=== PATIENT | female | born 1950 | race Caucasian/White ===

== ENCOUNTER 2017-09-07 09:12 | Day surgery (SDC) | payer MEDICARE, OTHER ==
[~2017-09-07] VITALS: Ht 160 cm; Wt 81.9 kg
[2017-09-07 09:35] VITALS: Ht 160 cm; Wt 81.9 kg
[2017-09-07] MEDS ORDERED: GABAPENTIN PO (09:59)
[2017-09-07] MEDS ORDERED: SENNA PO (09:59)
[2017-09-07] MEDS ORDERED: ELIQUIS PO (09:59)
[2017-09-07] MEDS ORDERED: SIMVASTATIN PO (09:59)
[2017-09-07 10:11] VITALS: BP 141/70; PULSE 101; RESP 18
[2017-09-07] MEDS ORDERED: LIDOCAINE 2% (SDV) 5 ML INJ ONE (10:13)
[2017-09-07] MEDS ORDERED: PROPOFOL 60 ML ONE (10:13)
--- NOTE | 2017-09-07 10:57 | OPPN ---
Date/Time of Note Date/Time of Note DATE: 09/07/17 TIME: 10:55 Operative Report Preoperative Diagnosis Abdominal pain Change in bowel habits Postoperative Diagnosis Gastritis Gastric nodule and biopsies were taken 2 small colon polyps from the rectum and sigmoid were removed using biopsy forceps Internal hemorrhoids Operation/Procedure Performed Esophagogastroduodenoscopy and biopsy Colonoscopy and biopsy Surgeon see signature line access services assistant None Anesthesia: MAC Estimated blood loss: none Transfusion Required none Specimen Biopsy of the gastric nodule Colon polyps Grafts/Implants none Complications none TOMMY BOURGEOIS MD Sep 07, 2017 10:57
[2017-09-07 11:17] VITALS: BP 119/65; PULSE 87; RESP 12
--- NOTE | 2017-09-07 13:41 | GILP ---
DATE OF PROCEDURE: NAME OF PROCEDURES: 1. Esophagogastroduodenoscopy and biopsy. 2. Colonoscopy and biopsy. SURGEON: Tommy Easley MD PREOPERATIVE DIAGNOSES: 1. Abdominal pain. 2. Change in the bowel habit. 3. Screening colonoscopy. POSTOPERATIVE DIAGNOSES 1. Gastritis with erosions. The patient had gastric nodules and biopsies were taken for histopatho logy. 2. Colonoscopy all the way to the cecum. 3. Two small polyps, one from the rectum and another one from the sigmoid colon were removed using biopsy forceps. 4. Internal hemorrhoids. INDICATION FOR THE PROCEDURE: Ms. Rose Marie Laguna is a 67-year-old female patient who had upper abdomin al pain, not responding to therapy. She also noticed a change in the bowel habit. She never had sc reening colonoscopy. The procedures and possible complications were well explained to the patient, she understood and con sented to the procedure. DESCRIPTION OF PROCEDURE: Under the influence of anesthesia, the gastroscope was carefully introduc ed into the esophagus and under direct vision it was advanced to the stomach and through the pylorus into the duodenal bulb and descending duodenum. FINDINGS: ESOPHAGUS: Mucosa was normal. STOMACH: The patient had gastritis with erosions. The patient also had a gastric nodule and biopsi es were taken for histopathology. DUODENUM: Normal. The colonoscope was carefully introduced in the rectum and under direct vision it was advanced all t he way to the cecum. FINDINGS: The patient had 2 small colon polyps, one in the rectum and another one in the sigmoid, a nd they were removed using the biopsy forceps. She had internal hemorrhoids. She tolerated the procedures very well and there was no complication from the procedures. At the en d of the procedures, she was awake with stable vital signs and she was discharged home to the care o f her family. IMPRESSION: Please see postoperative diagnosis. PLAN: 1. Omeprazole 40 mg p.o. q.a.m. 2. Await histopathology reports. 3. Next screening colonoscopy in 10 years. Dictated By: TOMMY SANON/SNEHA Conf#: [id number] DID#: [id number]
== END 2017-09-07 19:44 | disposition home or self-care (01) ==
LOC: GIL 09:12
PROVIDERS: ATTEND Internal Medicine Gastroenterology
DX: R19.4 Change in bowel habit (principal); K29.50 Unspecified chronic gastritis without bleeding; K63.5 Polyp of colon; K64.8 Other hemorrhoids; E78.5 Hyperlipidemia, unspecified; E66.9 Obesity, unspecified; Z68.32 Body mass index [BMI] 32.0-32.9, adult
CPT/HCPCS: 88305; 88312

== ENCOUNTER 2018-10-09 15:40 | Inpatient (IN) | payer MEDICARE, OTHER ==
[~2018-10-09] VITALS: Ht 167.6 cm; Wt 76.0 kg
[~2018-10-09 15:40] MED LIST: ELIQUIS PO; GABAPENTIN PO; SENNA PO; SIMVASTATIN PO
[2018-10-09] MEDS ORDERED: SOD CHLORIDE 0.9% 500 ML IV STA (19:37)
[2018-10-09] MEDS ORDERED: HYDROmorphONE 1 MG/ML SYG IV STA (19:37)
[2018-10-09] MEDS ORDERED: ONDANSETRON 4 MG INJ IV STA (19:37)
[2018-10-09] MEDS ORDERED: APIX5TAB PO (19:38)
[2018-10-09] MEDS ORDERED: SIMV20TA PO (19:38)
[2018-10-09] MEDS ORDERED: OMEP20CA16 PO (19:38)
--- NOTE | 2018-10-09 20:00 | ERD ---
ER Documentation Chief Complaint Chief Complaint Syncope HPI This is a 68-year-old female who is here for syncope. The patient says that she had syncope last night with preceding symptoms of chest pain and shortness of breath. She fell to her right side and today is complaining of pain to her right face right chest wall and right posterior ribs. She went to her primary care physician today and he sent her here for evaluation/admission. Patient is taking Eliquis because she has varicose veins given to her by her primary care physician. Denying any focal neurological complaints no GI symptoms. The pain in her right anterior and posterior chest is tender with palpation and movement ROS All systems reviewed and are negative except as per history of present illness. Medications Home Meds Reported Medications Omeprazole* (Omeprazole*) 20 Mg Capsule.dr, 20 MG PO DAILY, #30 CAP 10/09/18 Simvastatin* (Zocor*) 20 Mg Tablet, 20 MG PO QHS, #30 TAB 10/09/18 Apixaban* (Eliquis*) 5 Mg Tablet, 5 MG PO BID, TAB 10/09/18 Discontinued Reported Medications [Gabapentin] No Conflict Check, PO 09/07/17 [Simvastatin] No Conflict Check, PO 09/07/17 [Senna] No Conflict Check, PO 09/07/17 [Eliquis] No Conflict Check, PO 09/07/17 Allergies Allergies: Coded Allergies: No Known Allergy (Unverified , 10/09/18) PMhx/Soc History of Surgery: Yes (HYSTERECTOMY) Anesthesia Reaction: No Hx Neurological Disorder: No Hx Respiratory Disorders: No Hx Cardiac Disorders: No Hx Psychiatric Problems: No Hx Miscellaneous Medical Probl: Yes (HX PULMONARY EMBOLISM, DVT RIGHT LOWER EXTREMITY) Hx Alcohol Use: No Hx Substance Use: No Hx Tobacco Use: No FmHx Family History: No coronary disease Physical Exam Vitals Vital Signs Date Temp Pulse Resp B/P (MAP) Pulse Ox O2 O2 Flow FiO2 Time Delivery Rate 10/09/18 74 20 126/64 99 Room Air 20:22 (84) 10/09/18 97.6 90 20 152/68 97 15:46 (96) Physical Exam Const: Well-developed, well-nourished Head: Atraumatic, normocephalic Eyes: Normal Conjunctiva, PERRLA, EOMI, normal sclera, no nystagmus ENT: Normal External Ears, Nose and Mouth, moist mucus membranes. Neck: Full range of motion. No meningismus, no lymphadenopathy. Resp: Clear to auscultation bilaterally, no wheezing, rhonchi, rales, the right anterior and posterior rib cage is tender to palpation is 100% reproducible is also reproducible with movement Cardio: Regular rate and rhythm, no murmurs, S1 S2 present Abd: Soft, non tender x 4, non distended. Normal bowel sounds, no guarding or rebound, no pulsitile abdominal masses or bruits Skin: No petechiae or rashes, no ecchymosis , no maculopapular rash Back: No midline or flank tenderness Ext: No cyanosis, or edema, FROM x 4, normal inspection, neurovascula rly intact x 4 Neur: Awake and alert, STR 5/5 x 4, sensation intact x 4, no focal findings, cerebellum intact Psych: Normal Mood and Affect Result Diagram: 10/09/18194510/09/181945 Results 24 hrs Laboratory Tests Test 10/09/18 19:46 10/09/18 20:18 White Blood Count 5.1 10^3/ul Red Blood Count 4.39 10^6/ul Hemoglobin 14.0 g/dl Hematocrit 42.0 % Mean Corpuscular Volume 95.7 fl Mean Corpuscular Hemoglobin 31.9 pg Mean Corpuscular Hemoglobin Concent 33.3 g/dl Red Cell Distribution Width 12.5 % Platelet Count 191 10^3/UL Mean Platelet Volume 9.6 fl Immature Granulocytes % 0.200 % Neutrophils % 59.2 % Lymphocytes % 27.0 % Monocytes % 12.4 % Eosinophils % 0.6 % Basophils % 0.6 % Nucleated Red Blood Cells % 0.0 /100WBC Immature Granulocytes # 0.010 10^3/ul Neutrophils # 3.0 10^3/ul Lymphocytes # 1.4 10^3/ul Monocytes # 0.6 10^3/ul Eosinophils # 0.0 10^3/ul Basophils # 0.0 10^3/ul Nucleated Red Blood Cells # 0.0 10^3/ul Prothrombin Time 13.0 Sec Prothrombin Time Ratio 1.0 INR International Normalized Ratio 0.97 Activated Partial Thromboplast Time 27.7 Sec Sodium Level 140 mmol/L Potassium Level 3.5 mmol/L Chloride Level 107 mmol/L Carbon Dioxide Level 24 mmol/L Anion Gap 9 Blood Urea Nitrogen 10 mg/dl Creatinine 0.57 mg/dl Est Glomerular Filtrat Rate mL/min > 60 mL/min Glucose Level 119 mg/dl Calcium Level 9.2 mg/dl Troponin I < 0.012 ng/ml Urine Color YELLOW Urine Clarity CLOUDY Urine pH 5.0 Urine Specific Hayden 1.014 Urine Ketones NEGATIVE mg/dL Urine Nitrite NEGATIVE mg/dL Urine Bilirubin NEGATIVE mg/dL Urine Urobilinogen 1+ mg/dL Urine Leukocyte Esterase 2+ Taylor/ul Urine Microscopic RBC 5 /HPF Urine Microscopic WBC 69 /HPF Urine Squamous Epithelial Cells MANY /HPF Urine Bacteria FEW /HPF Urine Hemoglobin NEGATIVE mg/dL Urine Glucose NEGATIVE mg/dL Urine Total Protein NEGATIVE mg/dl Current Medications Medications Dose Sig/Stephanie Start Time Status Last (Trade) Ordered Route PRN Stop Time Admin Dose Reason Admin Sodium 500 ml @ Q1H STAT 10/09/18 DC 10/09/18 Chloride 500 mls/hr IV 19:37 10/09/18 19:55 20:36 0.5 mg ONCE STAT 10/09/18 DC 10/09/18 Hydromorphone IV 19:37 10/09/18 19:55 HCl 19:38 (Dilaudid) Ondansetron 4 mg ONCE STAT 10/09/18 DC 10/09/18 HCl (Zofran IV 19:37 10/09/18 19:54 Inj) 19:38 Procedures/MDM EKG: Rate/Rhythm: Normal sinus rhythm, right bundle branch block QRS, ST, QT: NORMAL CA, QRS, QT] Impression: Abnormal EKG MR #: [id number] DOS: 10/09/181936 Ordering MD: JOSEFA WASHINGTON DO Location: E/R Room/Bed: PROCEDURE: XR Chest. CLINICAL INDICATION: Syncope TECHNIQUE: Single frontal view of the chest was obtained COMPARISON: None FINDINGS: Several bilateral EKG electrodes obscure underlying anatomy and slightly limit evaluation. The cardiomediastinal silhouette is within normal limits. There are atherosclerotic calcifications of the aorta. The thoracic aorta is mildly tortuous. No pneumothorax, pleural effusion, consolidation is identified. There is no evidence of pulmonary vascular congestion. There is multilevel degenerative enthesopathy of the visualized spine. IMPRESSION: No evidence of an acute cardiopulmonary process. Thoracic aortic calcific atherosclerotic disease and mild tortuosity. RPTAT: HRC Jennifer Adler, Physician Date Time Electronically viewed and signed by Jennifer Adler, Physician on 10/09/2018 20:55 RC/ CC: JOSEFA WASHINGTON DO [id number] Patient's syncopal symptoms are unstable at this time and require inpatient workup. No evidence of PE or dissection at this time but occult ischemia or fat al dysrhythmia cannot be ruled out. Departure Diagnosis: Primary Impression: Syncope Syncope type: unspecified Qualified Codes: R55 - Syncope and collapse Additional Impression: Chest wall contusion Encounter type: initial encounter Laterality: right Qualified Codes: S20.211A - Contusion of right front wall of thorax, initial encounter Condition: Stable JOSEFA WASHINGTON DO Oct 09, 2018 20:00
[2018-10-09] MEDS ORDERED: NITROGLYCERIN (SL) 0.4 MG TAB SL PRN (21:30)
[2018-10-09] MEDS ORDERED: ACETAMINOPHEN 325 MG TAB PO PRN ×2 (21:30)
[2018-10-09] MEDS ORDERED: ONDANSETRON 4 MG INJ IV PRN ×2 (21:30)
[2018-10-09] MEDS ORDERED: NACL 0.9% 3 ML SYG IV SCH (21:30)
--- NOTE | 2018-10-09 21:38 | HP ---
Date/Time of Note Date/Time of Note DATE: 10/09/18 TIME: 21:38 Assessment/Plan VTE Prophylaxis Pharmacological prophylaxis: apixaban Lines/Catheters IV [facility]from [facility] Saline Lock Assessment/Plan Hospital Course This is a 68-year female being admitted to the telemetry floor for: #1 syncope: Unsure whether this is true syncope or fall, nonetheless patient did have a period of loss of consciousness. CT of the head did not show any signs of any acute bleed however it did show multiple lucencies within the calvarium bilaterally and in the greater wing of the left sphenoid bone are nonspecific and could be of benign or malignant etiology. At the current time will obtain an echocardiogram, carotid Dopplers, will also obtain an MRI of the brain with and without contrast as recommended by the CT of the head. Will check orthostatic vital signs. Neurology consultation . Will trend cardiac enzymes. #2 musculoskeletal pain: Status post fall. Patient does have right lateral chest wall pain, will obtain rib series of the right lateral chest. Patient also has right shoulder pain and limited range of motion along with decreased hand asset protection professional which is concerning for possible rotator cuff injury versus fracture. Will obtain x-rays of the right shoulder at the current time, may need MRI of the shoulder. Pain management. Lidocaine patch at the left chest wall. #3 VTE history: Patient has a history of DVT and PE, continue Eliquis #4 hyperlipidemia: Continue statin, check lipid panel #5 DVT GI prophylaxis: Eliquis, no GI prophylaxis indicated Further treatment strategy will be implemented as per the clinical course Result Diagram: 10/09/18194510/09/181945 Results 24hrs Laboratory Tests Test 10/09/18 19:46 10/09/18 20:18 White Blood Count 5.1 Red Blood Count 4.39 Hemoglobin 14.0 Hematocrit 42.0 Mean Corpuscular Volume 95.7 Mean Corpuscular Hemoglobin 31.9 Mean Corpuscular Hemoglobin Concent 33.3 Red Cell Distribution Width 12.5 Platelet Count 191 Mean Platelet Volume 9.6 Immature Granulocytes % 0.200 Neutrophils % 59.2 Lymphocytes % 27.0 Monocytes % 12.4 H Eosinophils % 0.6 Basophils % 0.6 Nucleated Red Blood Cells % 0.0 Immature Granulocytes # 0.010 Neutrophils # 3.0 Lymphocytes # 1.4 Monocytes # 0.6 Eosinophils # 0.0 Basophils # 0.0 Nucleated Red Blood Cells # 0.0 Prothrombin Time 13.0 Prothrombin Time Ratio 1.0 INR International Normalized Ratio 0.97 Activated Partial Thromboplast Time 27.7 Sodium Level 140 Potassium Level 3.5 Chloride Level 107 Carbon Dioxide Level 24 Anion Gap 9 Blood Urea Nitrogen 10 Creatinine 0.57 Est Glomerular Filtrat Rate mL/min > 60 Glucose Level 119 Calcium Level 9.2 Troponin I < 0.012 Urine Color YELLOW Urine Clarity CLOUDY A Urine pH 5.0 Urine Specific [place] 1.014 Urine Ketones NEGATIVE Urine Nitrite NEGATIVE Urine Bilirubin NEGATIVE Urine Urobilinogen 1+ H Urine Leukocyte Esterase 2+ H Urine Microscopic RBC 5 Urine Microscopic WBC 69 H Urine Squamous Epithelial Cells MANY A Urine Bacteria FEW A Urine Hemoglobin NEGATIVE Urine Glucose NEGATIVE Urine Total Protein NEGATIVE HPI/ROS Admit Date/Time Admit Date/Time Hx of Present Illness Chief complaint: Fall, body pain This is a 68-year-old female who presented to the emergency department after falling and losing consciousness. Patient reports that she was in the garden where she tripped and fell and hit her right side of her body on the cement. She did sustain a laceration to her right lower lip which has since stopped bleeding. She is unsure how long she was unconscious for but she thinks it may be a few minutes. She stated that after she awoke she started complaining of chest pain to the right side as well as pain on the right side of her face as well as her shoulder. This is a 68-year-old female who is here for syncope. She denies any chest pain or shortness of breath prior to falling. She is currently on Eliquis apparently due to varicose veins however she does have a history of DVT and PE. Allergies: NKDA Medications: See ELOY LOPEZ Const: As per HPI Eyes : No pain discharge or redness or change in visual acuity ENT: No pain, sore throat, congestion, congestion, dysphagia or discharge Respiratory: No shortness of breath, cough, sputum, wheezing, or pleuritic pain Cardiovascular: No chest pain, palpitation, PND, or edema GI : no change in appetite, abdominal pain, nausea, vomiting, diarrhea, constipation, or change in the color his stool Genitourinary: No dysuria, hematuria, flank pain , discharge or CVA tenderness Musculoskeletal: As per HPI Skin: No rash, bruising or hives Neuro: As per HPI Endocrine: No polyuria, polydipsia, temperature intolerance Psych: No hallucination, depression, anxiety or suicidal ideation Additional Comments PROCEDURE: XR Chest. CLINICAL INDICATION: Syncope TECHNIQUE: Single frontal view of the chest was obtained COMPARISON: None FINDINGS: Several bilateral EKG electrodes obscure underlying anatomy and slightly limit evaluation. The cardiomediastinal silhouette is within normal limits. There are atherosclerotic calcifications of the aorta. The thoracic aorta is mildly tortuous. No pneumothorax, pleural effusion, consolidation is identified. There is no evidence of pulmonary vascular congestion. There is multilevel degenerative enthesopathy of the visualized spine. IMPRESSION: No evidence of an acute cardiopulmonary process. Thoracic aortic calcific atherosclerotic disease and mild tortuosity. RPTAT: HRC Physician Oralia Date Time Electronically viewed and signed by Jennifer Adler Physician on 10/09/2018 20:55 RC/ CC: JOSEFA WASHINGTON DO [id number] PMH/Family/Social Past Medical History Pulmonary embolism, DVT, varicose veins, hyperlipidemia Medications Current Medications Sodium Chloride 1,000 ml @ 80 mls/hr [id number] IV ; Start 10/09/18 at 21:10; Stop 10/10/18 at 09:39 Ondansetron HCl (Zofran Inj) 4 mg ER BRIDGE PRN IV NAUSEA AND/OR VOMITING; Start 10/09/18 at 21:30; Stop 10/10/18 at 21:29 Acetaminophen (Tylenol Tab) 650 mg ER BRIDGE PRN PO MILD PAIN(1-3)OR ELEVATED TEMP; Start 10/09/18 at 21:30; Stop 10/10/18 at 21:29 Apixaban (Eliquis) 5 mg BID PO ; Start 10/10/18 at 09:00; Status UNV Miscellaneous Information 20 mg DAILY PO ; Start 10/10/18 at 09:00; Status UNV Miscellaneous Information 20 mg QHS PO ; Start 10/10/18 at 21:00; Status UNV IV Flush (NS 3 ml) 3 ml PER PROTOCOL IV ; Start 10/09/18 at 21:30; Status UNV Ondansetron HCl (Zofran Inj) 4 mg Q6H PRN IV NAUSEA AND/OR VOMITING; Start 10/09/18 at 21:30; Status UNV Nitroglycerin (Nitroglycerin (Sl Tab) 0.4 Mg) 1 tab Q5M PRN SL CHEST PAIN; Start 10/09/18 at 21:30; Status UNV Acetaminophen (Tylenol Tab) 650 mg Q6H PRN PO PAIN LEVEL 1-3 OR FEVER; Start 10/09/18 at 21:30; Status UNV Ceftriaxone Sodium 50 ml @ 100 mls/hr Q24H IVPB ; Start 10/09/18 at 21:30; Status UNV Coded Allergies: No Known Allergy (Unverified , 10/09/18) Past Surgical History Hysterectomy Family History Significant Family History: no pertinent family hx Social History Alcohol Use: none Smoking Status: Never smoker Drug Use: none Exam/Review of Systems Vital Signs Vitals Vital Signs Date Temp Pulse Resp B/P (MAP) Pulse Ox O2 O2 Flow FiO2 Time Delivery Rate 10/09/18 74 20 126/64 99 Room Air 20:22 (84) 10/09/18 97.6 15:46 Exam Exam General: Patient is currently sitting upright in bed she does report pain of her right shoulder and right chest wall HEENT: Atraumatic, normocephalic. The pupils are equal, round and reactive. E xtraocular motor are intact Neck: Supple with full range of motion. No rigidity or meningismus Chest: Nontender Lungs: Clear to auscultation bilaterally no crackles rales or wheezing Heart: Normal S1-S2, Regular rhythm and rate. No murmur, S3, or S4 Abdomen: Soft , nontender, nondistended , bowel sounds are present. No guarding no rebound tenderness , No masses or organomegaly. No costovertebral temporal angle mass Extremities: Normal to inspection, no edema no cyanosis Musculoskeletal: Tenderness to palpation along the right lateral chest wall, right shoulder: Tenderness to palpation over the posterior shoulder as well as the deltoid, limited range of motion and unable to raise her arm more than 90 degrees, decreased asset protection professional strength of the right hand compared to the left Neurologic: Normal mental status, speech normal, cranial nerves II through XII are intact, motor and sensory are intact, Additional Comments EKG: Rate/Rhythm: Normal sinus rhythm, right bundle branch block QRS, ST, QT: NORMAL NE, QRS, QT] Impression: Abnormal EKG PROCEDURE: XR Chest. CLINICAL INDICATION: Syncope TECHNIQUE: Single frontal view of the chest was obtained COMPARISON: None FINDINGS: Several bilateral EKG electrodes obscure underlying anatomy and slightly limit evaluation. The cardiomediastinal silhouette is within normal limits. There are atherosclerotic calcifications of the aorta. The thoracic aorta is mildly tortuous. No pneumothorax, pleural effusion, consolidation is identified. There is no evidence of pulmonary vascular congestion. There is multilevel degenerative enthesopathy of the visualized spine. IMPRESSION: No evidence of an acute cardiopulmonary process. Thoracic aortic calcific atherosclerotic disease and mild tortuosity. RPTAT: HRC Physician Oralia Date Time Electronically viewed and signed by Physician Oralia on 10/09/2018 20: 55 RC/ CC: JOSEFA WASHINGTON DO [id number] PROCEDURE: CT Brain without contrast. CLINICAL INDICATION: Syncope TECHNIQUE: CT of the brain was performed from the skull base through the vertex without IV contrast. Multiplanar reformatted images were made. Images were reviewed on a PACS workstation. The CTDIvol is 39.46 mGy and the DLP is 634.23 mGycm. DICOM images are available. One or more of the following dose reduction techniques were utilized: 1.) Automated exposure control 2.) Adjustment of the mA +/- kV according to patient's size 3.) Use of iterative reconstruction technique. COMPARISON: None FINDINGS: Brain: There is no intracranial hemorrhage, mass effect, or midline shift. No extra-axial fluid collection is seen. The ventricles and sulci are normal in size and configuration. There is mild generalized parenchymal volume loss noted. No evidence of acute territorial infarct. Soft tissues: Unremarkable. Skull and skull base: A 7 mm focal lucency is visualized within the right frontal calvarium. Focal lucent lesion is also visualized in the left greater wing of sphenoid bone. There are smaller scattered lucencies within the calvarium of the right frontal and bilateral parietal bones. There is no cortical destruction seen. No fractures. Mastoids and middle ear cavities are normal. Face/orbits: Visualized portions are unremarkable. Paranasal sinuses: Visualized portions are unremarkable. IMPRESSION: 1. No evidence of acute intracranial abnormality. 2. Mild generalized parenchymal volume loss 3. Multiple lucencies within the calvarium bilaterally and in the greater wing of the left sphenoid bone are nonspecific and could be of benign or malignant etiology. If there is history of malignancy, these could represent metastatic disease or multiple myeloma. MRI of the brain with and without contrast would be helpful for further evaluation. RPTAT: HEUY Physician shaneka Date Time Electronically viewed and signed by Physician shaneka on 10/09/2018 23:21 ry/ CC: JOSEFA WASHINGTON DO [id number] ROHIT ROSADO Oct 09, 2018 21:38
[2018-10-09 22:50] VITALS: PULSE 69
[2018-10-09 22:53] VITALS: Ht 167.6 cm; Wt 76.0 kg
[2018-10-09] MEDS ORDERED: HYDROCODONE/APAP (10/325) TAB PO PRN (23:00)
[2018-10-09] MEDS ORDERED: APIXABAN 5 MG TABLET PO ONE (23:30)
[2018-10-10] VITALS (10 sets, daily range): BP systolic 110–152; BP diastolic 57–71; PULSE 55–102; RESP 18–22
[2018-10-10] MEDS ORDERED: morphine SULFATE/PF (2 MG/2 ML) SYG IV PRN
[2018-10-10] MEDS: CEFTRIAXONE 1 GM/50 ML (PMX) 50 ML IVPB SCH ×2 (00:09→20:40)
[2018-10-10] MEDS: SOD CHLORIDE 0.9% 1,000 ML IV SCH ×2 (00:10→08:58)
[2018-10-10] MEDS: NAPROXEN 500 MG TAB PO SCH ×3 (00:50→20:40)
[2018-10-10] MEDS: PANTOPRAZOLE (EC) 40 MG TAB PO SCH (05:53)
[2018-10-10] MEDS: APIXABAN 5 MG TABLET PO SCH ×2 (08:58→20:40)
--- NOTE | 2018-10-10 13:25 | PN ---
Date/Time of Note Date/Time of Note DATE: 10/10/18 TIME: 13:09 Assessment/Plan VTE Prophylaxis Risk score (from Ns)>0 risk: 6 SCD applied (from Ns): Yes Pharmacological prophylaxis: apixaban Lines/Catheters IV Catheter Type (from Nrs): Peripheral IV Urinary Cath still in place: No Assessment/Plan Assessment/Plan 1. Syncope, orthostatic. Patient was walking towards to her front door in her porch when she tripped and fell forward and landed on her right side, right face and right forehead. SHe did not feel dizzy nor lost her consciousness before and right after she fell. But she lost consciousness when she tried to get up after the fall. 2. Musculoskeletal pain: Status post fall. Patient does have right lateral chest wall pain, will obtain rib series of the right lateral chest. Patient also has right shoulder pain, pain control 3. UTI, rocephin 4. Multiple lucencies within the calvarium bilaterally and in the greater wing of the left sphenoid bone on head CT scan, MRI 5. RLE DVT and PE about 10 years ago, on Eliquis 6. Hyperlipidemia 7. DVT prophylaxis: Eliquis Result Diagram: 10/10/18 0333 10/10/18 0333 Results 24hrs Laboratory Tests Test 10/09/18 19:46 10/09/18 20:18 10/10/18 03:33 10/10/18 10:37 White Blood Count 5.1 4.0 #L Red Blood Count 4.39 3.87 L Hemoglobin 14.0 12.4 Hematocrit 42.0 37.9 Mean Corpuscular Volume 95.7 97.9 Mean Corpuscular 31.9 32.0 Hemoglobin Mean Corpuscular 33.3 32.7 Hemoglobin Concent Red Cell Distribution 12.5 12.6 Width Platelet Count 191 162 Mean Platelet Volume 9.6 9.4 Immature Granulocytes % 0.200 0.700 H Neutrophils % 59.2 52.1 Lymphocytes % 27.0 33.6 Monocytes % 12.4 H 11.9 H Eosinophils % 0.6 1.2 Basophils % 0.6 0.5 Nucleated Red Blood 0.0 0.0 Cells % Immature Granulocytes # 0.010 0.030 Neutrophils # 3.0 2.1 Lymphocytes # 1.4 1.4 Monocytes # 0.6 0.5 Eosinophils # 0.0 0.1 Basophils # 0.0 0.0 Nucleated Red Blood 0.0 0.0 Cells # Prothrombin Time 13.0 Prothrombin Time Ratio 1.0 INR International 0.97 Normalized Ratio Activated 27.7 Partial Thromboplast Time Sodium Level 140 142 Potassium Level 3.5 4.0 Chloride Level 107 110 Carbon Dioxide Level 24 27 Anion Gap 9 5 Blood Urea Nitrogen 10 12 Creatinine 0.57 0.64 Est Glomerular Filtrat > 60 > 60 Rate mL/min Glucose Level 119 95 Calcium Level 9.2 8.8 Troponin I < 0.012 < 0.012 < 0.012 Urine Color YELLOW Urine Clarity CLOUDY A Urine pH 5.0 Urine Specific [place] 1.014 Urine Ketones NEGATIVE Urine Nitrite NEGATIVE Urine Bilirubin NEGATIVE Urine Urobilinogen 1+ H Urine Leukocyte Esterase 2+ H Urine Microscopic RBC 5 Urine Microscopic WBC 69 H Urine Squamous MANY A Epithelial Cells Urine Bacteria FEW A Urine Hemoglobin NEGATIVE Urine Glucose NEGATIVE Urine Total Protein NEGATIVE Hemoglobin A1c 5.8 Magnesium Level 2.0 Total Bilirubin 0.1 L Direct Bilirubin 0.00 Indirect Bilirubin 0.1 Aspartate Amino 23 Transf (AST/SGOT) Alanine 20 Aminotransferase (ALT/SG PT) Alkaline Phosphatase 104 Creatine Kinase 64 87 Creatine Kinase Index 1.0 0.8 Creatinine Kinase MB 0.62 0.71 (Mass) Total Protein 6.1 Albumin 3.2 L Globulin 2.90 Albumin/Globulin Ratio 1.10 Triglycerides Level 72 Cholesterol Level 105 LDL Cholesterol, 51 Calculated HDL Cholesterol 40 Cholesterol/HDL Ratio 2.6 Thyroid Stimulating 3.090 Hormone (TSH) Subjective 24 Hr Interval Summary Free Text/Dictation right sided body ache Exam/Review of Systems Vital Signs Vitals Vital Signs Date Temp Pulse Resp B/P (MAP) Pulse Ox O2 O2 Flow FiO2 Time Delivery Rate 10/10/18 60 12:32 10/10/18 Room Air 12:15 10/10/18 97.6 22 126/60 96 11:58 (82) Intake and Output 10/09/18 10/09/18 10/10/18 1515:00 23:00 07:00 IntakeIntake Total 1240 ml BalanceBalance 1240 ml Exam Constitutional: alert, oriented, well developed Psych: no complaints, nl mood/affect Head: normocephalic, lacerations Eyes: nl conjunctiva, EOMI, nl lids ENMT: nl external ears & nose, nl lips & teeth, nl nasal mucosa & septum Neck: supple, non-tender Respiratory: clear to auscultation, normal air movement; No congested cough, No crackles/rales, No diminished breath sounds, No inte rcostal retraction, No labored breathing, No respirations, No tactile fremitus, No wheezing, No other Cardiovascular: regular rate and rhythm, nl pulses; No bruits, No diastolic murmur, No edema, No gallop, No irregular rhythm, No jugular venous distention (JVD), No murmurs/extra sounds, No rub, No systolic murmur, No S3, No S4, No other Gastrointestinal: soft, nl liver, spleen, non-tender Musculoskeletal: nl extremities to inspection Extremities: normal pulses; No calf tenderness, No cyanosis, No clubbing, No edema, No pitting pedal edema, No palpable cord, No tenderness, No other Neurological: [employer]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, nl mental status, nl speech, nl strength Medications Medications Current Medications Ondansetron HCl (Zofran Inj) 4 mg ER BRIDGE PRN IV NAUSEA AND/OR VOMITING; Start 10/09/18 at 21:30; Stop 10/10/18 at 21:29 Acetaminophen (Tylenol Tab) 650 mg ER BRIDGE PRN PO MILD PAIN(1-3)OR ELEVATED TEMP; Start 10/09/18 at 21:30; Stop 10/10/18 at 21:29 Apixaban (Eliquis) 5 mg BID PO Last administered on 10/10/18at 08:58; Admin Dose 5 MG; Start 10/10/18 at 09:00 Pantoprazole (Protonix Tab) 40 mg DAILY@06 PO Last administered on 10/10/18at 05:53; Admin Dose 40 MG; Start 10/10/18 at 06:00 Atorvastatin Calcium (Lipitor) 10 mg DAILY@21 PO ; Start 10/10/18 at 21:00 IV Flush (NS 3 ml) 3 ml PER PROTOCOL IV ; Start 10/09/18 at 21:30 Ondansetron HCl (Zofran Inj) 4 mg Q6H PRN IV NAUSEA AND/OR VOMITING; Start 10/09/18 at 21:30 Nitroglycerin (Nitroglycerin (Sl Tab) 0.4 Mg) 1 tab Q5M PRN SL CHEST PAIN; Start 10/09/18 at 21:30 Acetaminophen (Tylenol Tab) 650 mg Q6H PRN PO PAIN LEVEL 1-3 OR FEVER; Start 10/09/18 at 21:30 Ceftriaxone Sodium 50 ml @ 100 mls/hr Q24H IVPB Last administered on 10/10/18at 00:09; Admin Dose 100 MLS/HR; Start 10/09/18 at 21:30 Acetaminophen/ Hydrocodone Bitart ([place] (10/325)) 1 tab Q4H PRN PO MODERATE PA IN LEVEL 4-6 Last administered on 10/10/18at 08:58; Admin Dose 1 TAB; Start 10/09/18 at 23:00 Naproxen (Naprosyn) 500 mg BID PO Last administered on 10/10/18at 08:57; Admin Dose 500 MG; Start 10/10/18 at 00:00 Morphine Sulfate (morphine SULFATE (PF)) 1 mg Q4H PRN IV SEVERE PAIN LEVEL 7- 10; Start 10/10/18 at 00:00 KATELIN PAZ MD Oct 10, 2018 13:23
--- NOTE | 2018-10-10 14:51 | RADRPT ---
Echocardiogram Report Patient Name: JUDY PERSON Gender: Female Date: 1950 Study Date: 10-Oct-2018 Progress Developer: Sharon Dowd [facility] Location: [id number] Ref. Physician: ROHIT ROSADO Quality: Adequate Procedures: Transthoracic echocardiogram with complete 2D, M-Mode, and doppler examination. Indications: Syncope. 2D/M Mode Doppler Measurement Value Normal Ranges Measurement Value Normal Ranges LVIDd 2D 3.6 3.5 - 5.6 cm AV Peak Teo 1.4 m/sec LVIDs 2D 2.4 2.1 - 4.1 cm AV Peak PG 8.0 mmHg FS 2D 33.3 % LVOT Peak Teo 1.1 m/sec LVPWd 2D 1.0 0.6 - 1.1 cm LVOT Peak PG 5.0 mmHg IVSd 2D 1.1 0.6 - 1.1 cm MV E Peak Teo 0.8 m/sec IVS/LVPW 2D 1.0 MV A Peak Teo 0.7 m/sec AoR Diam 2D 2.3 2.0 - 3.7 cm MV E/A 1.1 LA/Ao 2D 2 0 - 1 MV Decel Time 169 msec EDV 2D 45.5 cm3 MV E/A 1.1 ESV 2D 13.5 cm3 TR Peak Teo 3.1 m/sec LA Dimen 2D 3.7 2.3 - 4.0 cm TR Peak PG 39.0 mmHg RVSP 49.0 mmHg RA Pressure 10.0 Findings Left Ventricle: Normal left ventricular systolic function. Normal left ventricular cavity size. Mild concentric left ventricular hypertrophy. Ejection fraction is visually estimated at 60 %. Tissue Doppler/Mitral Doppler indices are consistent with impaired relaxation (Stage I diastolic dysfunction). Right Ventricle: Normal right ventricular size. Normal right ventricular systolic function. Left Atrium: The left atrium is normal in size. Right Atrium: The right atrium is normal in size. Mitral Valve: Normal appearance and function of the mitral valve with trace physiologic regurgitation. Aortic Valve: Normal appearance of the aortic valve. No significant aortic stenosis or insufficiency. Tricuspid Valve: Normal appearance of the tricuspid valve. Estimated peak PA systolic pressure 49 mmHg. There is mild tricuspid regurgitation. Pulmonic Valve: Normal pulmonic valve appearance. Pericardium: Normal pericardium with no significant pericardial effusion. Aorta: Normal aortic root. IVC: Normal size and normal respiratory collapse consistent with normal right atrial pressure. Conclusions Normal left ventricular systolic function. Normal left ventricular cavity size. Mild concentric left ventricular hypertrophy. Ejection fraction is visually estimated at 60 %. Tissue Doppler/Mitral Doppler indices are consistent with impaired relaxation (Stage I diastolic dysfunction). Normal appearance and function of the mitral valve with trace physiologic regurgitation. Normal appearance of the aortic valve. No significant aortic stenosis or insufficiency. Normal appearance of the tricuspid valve. Estimated peak PA systolic pressure 49 mmHg. There is mild tricuspid regurgitation. Normal size and normal respiratory collapse consistent with normal right atrial pressure. Normal pericardium with no significant pericardial effusion. Electronically Signed By: Sukhdev Farley 10-Oct-2018 14:50:04 -0800 Patient Name: JUDY PERSON Study Date: 10-Oct-2018 [id number]
--- NOTE | 2018-10-10 15:43 | CONS ---
Assessment/Plan Assessment/Plan Hospital Course A: 68 yo F who presents following a fall c/b head trauma and subsequent LOC.. Per her report, her fall was mechanical. CTH is notable for calvarial lucencies... for which neurology is consulted. Perhaps an underlying primary bone disorder vs metastatic disease to bone. P: Continued medical workup per primary EEG/MRI brain not presently indicated.. Will follow clinically, to recommend neurologic studies, as necessary Result Diagram: 10/10/18 0333 10/10/18 0333 Results 24hrs Laboratory Tests Test 10/09/18 19:46 10/09/18 20:18 10/10/18 03:33 10/10/18 10:37 White Blood Count 5.1 4.0 #L Red Blood Count 4.39 3.87 L Hemoglobin 14.0 12.4 Hematocrit 42.0 37.9 Mean Corpuscular Volume 95.7 97.9 Mean Corpuscular 31.9 32.0 Hemoglobin Mean Corpuscular 33.3 32.7 Hemoglobin Concent Red Cell Distribution 12.5 12.6 Width Platelet Count 191 162 Mean Platelet Volume 9.6 9.4 Immature Granulocytes % 0.200 0.700 H Neutrophils % 59.2 52.1 Lymphocytes % 27.0 33.6 Monocytes % 12.4 H 11.9 H Eosinophils % 0.6 1.2 Basophils % 0.6 0.5 Nucleated Red Blood 0.0 0.0 Cells % Immature Granulocytes # 0.010 0.030 Neutrophils # 3.0 2.1 Lymphocytes # 1.4 1.4 Monocytes # 0.6 0.5 Eosinophils # 0.0 0.1 Basophils # 0.0 0.0 Nucleated Red Blood 0.0 0.0 Cells # Prothrombin Time 13.0 Prothrombin Time Ratio 1.0 INR International 0.97 Normalized Ratio Activated 27.7 Partial Thromboplast Time Sodium Level 140 142 Potassium Level 3.5 4.0 Chloride Level 107 110 Carbon Dioxide Level 24 27 Anion Gap 9 5 Blood Urea Nitrogen 10 12 Creatinine 0.57 0.64 Est Glomerular Filtrat > 60 > 60 Rate mL/min Glucose Level 119 95 Calcium Level 9.2 8.8 Troponin I < 0.012 < 0.012 < 0.012 Urine Color YELLOW Urine Clarity CLOUDY A Urine pH 5.0 Urine Specific [place] 1.014 Urine Ketones NEGATIVE Urine Nitrite NEGATIVE Urine Bilirubin NEGATIVE Urine Urobilinogen 1+ H Urine Leukocyte Esterase 2+ H Urine Microscopic RBC 5 Urine Microscopic WBC 69 H Urine Squamous MANY A Epithelial Cells Urine Bacteria FEW A Urine Hemoglobin NEGATIVE Urine Glucose NEGATIVE Urine Total Protein NEGATIVE Hemoglobin A1c 5.8 Magnesium Level 2.0 Total Bilirubin 0.1 L Direct Bilirubin 0.00 Indirect Bilirubin 0.1 Aspartate Amino 23 Transf (AST/SGOT) Alanine 20 Aminotransferase (ALT/SG PT) Alkaline Phosphatase 104 Creatine Kinase 64 87 Creatine Kinase Index 1.0 0.8 Creatinine Kinase MB 0.62 0.71 (Mass) Total Protein 6.1 Albumin 3.2 L Globulin 2.90 Albumin/Globulin Ratio 1.10 Triglycerides Level 72 Cholesterol Level 105 LDL Cholesterol, 51 Calculated HDL Cholesterol 40 Cholesterol/HDL Ratio 2.6 Thyroid Stimulating 3.090 Hormone (TSH) Consultation Date/Type/Reason Admit Date/Time Type of Consult Neurology Reason for Consultation syncope, abnormal lucencies on CTH Requesting Provider: KATELIN PAZ MD Date/Time of Note DATE: 10/10/18 TIME: 15:43 Hx of Present Illness Hx of Present Illness Chief complaint: Fall, body pain This is a 68-year-old female who presented to the emergency department after falling and losing consciousness. Patient reports that she was in the garden where she tripped and fell and hit her right side of her body on the cement. She did sustain a laceration to her right lower lip which has since stopped bleeding. She is unsure how long she was unconscious for but she thinks it may be a few minutes. She stated that after she awoke she started complaining of chest pain to the right side as well as pain on the right side of her face as well as her shoulder. This is a 68-year-old female who is here for syncope. She denies any chest pain or shortness of breath prior to falling. She is currently on Eliquis apparently due to varicose veins however she does have a history of DVT and PE. negative unless noted otherwise in HPI Exam/Review of Systems Vital Signs Vitals Vital Signs Date Temp Pulse Resp B/P (MAP) Pulse Ox O2 O2 Flow FiO2 Time Delivery Rate 10/10/18 60 12:32 10/10/18 Room Air 12:15 10/10/18 97.6 22 126/60 96 11:58 (82) Intake and Output 10/09/18 10/09/18 10/10/18 1414:59 22:59 06:59 IntakeIntake Total 1240 ml BalanceBalance 1240 ml Exam PE: Gen Appearance: No Apparent Distress HEENT: Has R lower lip laceration and R jaw swelling Cardiovascular: Regular rate Abdomen: Soft Extremities: Dry NE: The patient was alert and oriented.. Language was normal. Fund of knowledge was normal. Pupils were equal and reactive to light. There was no afferent pupillary defect. Visual lala were normal. Funduscopic examination showed sharp disc margins and spontaneous venous pulsations. Extra-ocular movements were full. Ptosis was absent. There was no nystagmus. Facial sensation was normal. Face was symmetric with normal strength. Hearing was intact. Palate movements were normal. Neck strength was normal. There was normal tongue bulk and speed of movement. Tone was normal. Muscle bulk was normal. I did not see fasciculations. Arms and legs were strong. Vibration sensation was normal. Temperature and pinprick sensation was normal. Rapid alternating movements were normal. There was no dysmetria. There was no intention tremor. Gait was steady Arm and leg reflexes were 2+ and symmetric. Lawler's sign was absent. Plantar responses were flexor. Medications Medications Current Medications Ondansetron HCl (Zofran Inj) 4 mg ER BRIDGE PRN IV NAUSEA AND/OR VOMITING; Start 10/09/18 at 21:30; Stop 10/10/18 at 21:29 Acetaminophen (Tylenol Tab) 650 mg ER BRIDGE PRN PO MILD PAIN(1-3)OR ELEVATED TEMP; Start 10/09/18 at 21:30; Stop 10/10/18 at 21:29 Apixaban (Eliquis) 5 mg BID PO Last administered on 10/10/18at 08:58; Admin Dose 5 MG; Start 10/10/18 at 09:00 Pantoprazole (Protonix Tab) 40 mg DAILY@06 PO Last administered on 10/10/18at 05:53; Admin Dose 40 MG; Start 10/10/18 at 06:00 Atorvastatin Calcium (Lipitor) 10 mg DAILY@21 PO ; Start 10/10/18 at 21:00 IV Flush (NS 3 ml) 3 ml PER PROTOCOL IV ; Start 10/09/18 at 21:30 Ondansetron HCl (Zofran Inj) 4 mg Q6H PRN IV NAUSEA AND/OR VOMITING; Start 10/09/18 at 21:30 Nitroglycerin (Nitroglycerin (Sl Tab) 0.4 Mg) 1 tab Q5M PRN SL CHEST PAIN; Start 10/09/18 at 21:30 Acetaminophen (Tylenol Tab) 650 mg Q6H PRN PO PAIN LEVEL 1-3 OR FEVER; Start 10/09/18 at 21:30 Ceftriaxone Sodium 50 ml @ 100 mls/hr Q24H IVPB Last administered on 10/10/18at 00:09; Admin Dose 100 MLS/HR; Start 10/09/18 at 21:30 Acetaminophen/ Hydrocodone Bitart ([place] (10/325)) 1 tab Q4H PRN PO MODERATE PAIN LEVEL 4-6 Last administered on 10/10/18at 08:58; Admin Dose 1 TAB; Start 10/09/18 at 23:00 Naproxen (Naprosyn) 500 mg BID PO Last administered on 10/10/18at 08:57; Admin Dose 500 MG; Start 10/10/18 at 00:00 Morphine Sulfate (morphine SULFATE (PF)) 1 mg Q4H PRN IV SEVERE PAIN LEVEL 7- 10; Start 10/10/18 at 00:00 Past Medical History reviewed Medications Current Medications Ondansetron HCl (Zofran Inj) 4 mg ER BRIDGE PRN IV NAUSEA AND/OR VOMITING; Start 10/09/18 at 21:30; Stop 10/10/18 at 21:29 Acetaminophen (Tylenol Tab) 650 mg ER BRIDGE PRN PO MILD PAIN(1-3)OR ELEVATED TEMP; Start 10/09/18 at 21:30; Stop 10/10/18 at 21:29 Apixaban (Eliquis) 5 mg BID PO Last administered on 10/10/18at 08:58; Admin Dose 5 MG; Start 10/10/18 at 09:00 Pantoprazole (Protonix Tab) 40 mg DAILY@06 PO Last administered on 10/10/18at 05:53; Admin Dose 40 MG; Start 10/10/18 at 06:00 Atorvastatin Calcium (Lipitor) 10 mg DAILY@21 PO ; Start 10/10/18 at 21:00 IV Flush (NS 3 ml) 3 ml PER PROTOCOL IV ; Start 10/09/18 at 21:30 Ondansetron HCl (Zofran Inj) 4 mg Q6H PRN IV NAUSEA AND/OR VOMITING; Start 10/09/18 at 21:30 Nitroglycerin (Nitroglycerin (Sl Tab) 0.4 Mg) 1 tab Q5M PRN SL CHEST PAIN; Start 10/09/18 at 21:30 Acetaminophen (Tylenol Tab) 650 mg Q6H PRN PO PAIN LEVEL 1-3 OR FEVER; Start 10/09/18 at 21:30 Ceftriaxone Sodium 50 ml @ 100 mls/hr Q24H IVPB Last administered on 10/10/18at 00:09; Admin Dose 100 MLS/HR; Start 10/09/18 at 21:30 Acetaminophen/ Hydrocodone Bitart ([place] (10)) 1 tab Q4H PRN PO MODERATE PAIN LEVEL 4-6 Last administered on 10/10/18at 08:58; Admin Dose 1 TAB; Start 10/09/18 at 23:00 Naproxen (Naprosyn) 500 mg BID PO Last administered on 10/10/18at 08:57; Admin Dose 500 MG; Start 10/10/18 at 00:00 Morphine Sulfate (morphine SULFATE (PF)) 1 mg Q4H PRN IV SEVERE PAIN LEVEL 7- 10; Start 10/10/18 at 00:00 Allergies: Coded Allergies: No Known Allergy (Unverified , 10/09/18) Past Surgical History reviewed Social History reviewed Alcohol Use: none Smoking Status: Never smoker Drug Use: none FARIDA RAMOS NP Oct 10, 2018 15:43 LATISHA SPARKS Oct 10, 2018 17:56
[2018-10-10] MEDS ORDERED: ATORVASTATIN 10 MG TAB PO SCH (21:00)
[2018-10-11] VITALS (7 sets, daily range): BP systolic 119–143; BP diastolic 58–77; PULSE 65–81; RESP 18
[2018-10-11] MEDS: PANTOPRAZOLE (EC) 40 MG TAB PO SCH (05:48)
[2018-10-11] MEDS: APIXABAN 5 MG TABLET PO SCH (08:51)
[2018-10-11] MEDS: NAPROXEN 500 MG TAB PO SCH (08:51)
--- NOTE | 2018-10-11 13:47 | CONS ---
Assessment/Plan Assessment/Plan Hospital Course A: 68 yo F who presents following a fall c/b head trauma and subsequent LOC.. Per her report, her fall was mechanical. As an aside, the pt has c/o severe headache, which is likely post-concussive in etiology. CTH is notable for calvarial lucencies... for which neurology is consulted. Perhaps an underlying primary bone disorder vs metastatic disease to bone. P: Toradol 15mg IV q8h PRN headache, as kidney function allows Continued medical workup per primary EEG/MRI brain not presently indicated.. Will follow clinically, to recommend neurologic studies, as necessary Result Diagram: 10/10/18 0333 10/10/18 0333 Consultation Date/Type/Reason Admit Date/Time Oct 09, 2018 at 21:15 Type of Consult Neurology Reason for Consultation syncope, abnormal lucencies on CTH Requesting Provider: KATELIN PAZ MD Date/Time of Note DATE: 10/11/18 TIME: 13:45 24 HR Interval Summary Free Text/Dictation Continues telemetry monitoring. Pt has c/o headache, 7/10, and L sided body aches. Exam Vital Signs Vitals Vital Signs Date Temp Pulse Resp B/P (MAP) Pulse Ox O2 O2 Flow FiO2 Time Delivery Rate 10/11/18 Room Air 12:16 10/11/18 74 12:12 10/11/18 98.3 18 143/77 99 11:27 (99) Intake and Output 10/10/18 10/10/18 10/11/18 1515:00 23:00 07:00 IntakeIntake Total 940 ml 200 ml 490 ml BalanceBalance 940 ml 200 ml 490 ml Exam PE: Gen Appearance: No Apparent Distress HEENT: Has R lower lip laceration and R jaw swelling Cardiovascular: Regular rate Abdomen: Soft Extremities: Dry NE: The patient was alert and oriented.. Language was normal. Fund of knowledge was normal. Pupils were equal and reactive to light. There was no afferent pupillary defect. Visual lala were normal. Funduscopic examination showed sharp disc margins and spontaneous venous pulsations. Extra-ocular movements were full. Ptosis was absent. There was no nystagmus. Facial sensation was normal. Face was symmetric with normal strength. Hearing was intact. Palate movements were normal. Neck strength was normal. There was normal tongue bulk and speed of movement. Tone was normal. Muscle bulk was normal. I did not see fasciculations. Arms and legs were strong. Vibration sensation was normal. Temperature and pinprick sensation was normal. Rapid alternating movements were normal. There was no dysmetria. There was no intention tremor. Gait was steady Arm and leg reflexes were 2+ and symmetric. Lawler's sign was absent. Plantar responses were flexor. FARIDA RAMOS NP Oct 11, 2018 13:47
[2018-10-11] MEDS ORDERED: KETOROLAC 15 MG INJ IV PRN (14:00)
[2018-10-11] MEDS ORDERED: LEVO250T9 PO (15:06)
--- NOTE | 2018-10-11 15:15 | DS ---
Date/Time of Note Date/Time of Note DATE: 10/11/18 TIME: 15:07 Discharge Summary Admission/Discharge Info Admit Date/Time Oct 09, 2018 at 21:15 Discharge Date/Time Discharge Diagnosis 1. Syncope, orthostatic. Patient was walking towards to her front door in her p orch when she tripped and fell forward and landed on her right side, right face and right forehead. SHe did not feel dizzy nor lost her consciousness before and right after she fell. But she lost consciousness when she tried to get up after the fall. 2. Musculoskeletal pain: Status post fall. Patient does have right lateral chest wall pain, will obtain rib series of the right lateral chest. Patient also has right shoulder pain, pain is much less today, follow up with PCP 3. UTI, stable, levaquin 4. Multiple lucencies within the calvarium bilaterally and in the greater wing of the left sphenoid bone on head CT scan, MRI 5. RLE DVT and PE about 10 years ago, on Eliquis 6. Hyperlipidemia, statin Patient Condition: Stable Hospital Course Patient was walking towards to her front door in her porch when she tripped and fell forward and landed on her right side, right face and right forehead. She did not feel dizzy nor lost her consciousness before and right after she fell. But she lost consciousness when she tried to get up after the fall. Echocardiography, carotid US, CT head and MRI head are all unremarkable except CT scan reported as Multiple lucencies within the calvarium bilaterally and in the greater wing of the left sphenoid bone that that is not confirmed on MRI. The syncope is considered secondary to orthostatic when she got up from the ground after a fall. Patient has right sided body ache and right shoulder pain that is significantly less today. Right should er X-ray unremarkable. She moves right shoulder with some pain but no limitation of movement. She is instructed to follow up with PCP for this. Patient has UTI that she is on antibiotics. Home Meds Active Scripts Levofloxacin* (Levofloxacin*) 250 Mg Tablet, 250 MG PO DAILY for 3 Days, TAB Prov:KATELIN PAZ MD 10/11/18 Reported Medications Omeprazole* (Omeprazole*) 20 Mg Capsule.dr, 20 MG PO DAILY, #30 CAP 10/09/18 Simvastatin* (Zocor*) 20 Mg Tablet, 20 MG PO QHS, #30 TAB 10/09/18 Apixaban* (Eliquis*) 5 Mg Tablet, 5 MG PO BID, TAB 10/09/18 Discontinued Reported Medications [Gabapentin] No Conflict Check, PO 09/07/17 [Simvastatin] No Conflict Check, PO 09/07/17 [Senna] No Conflict Check, PO 09/07/17 [Eliquis] No Conflict Check, PO 09/07/17 Follow-up Plan PCP in one week Primary Care Provider Not On Staff Doctor KATELIN PZA MD Oct 11, 2018 15:15
== END 2018-10-11 16:22 | disposition home or self-care (01) | DRG 312 ==
LOC: E/R 15:40 → 6WM 21:15 → OBSVTOIN 10-11 16:12
PROVIDERS: ADMIT Family Medicine; ATTEND Internal Medicine
DX: R55 Syncope and collapse (principal); N39.0 Urinary tract infection, site not specified; M79.18 Myalgia, other site; E78.5 Hyperlipidemia, unspecified; S20.219A Contusion of unspecified front wall of thorax, initial encounter; W18.30XA Fall on same level, unspecified, initial encounter
CPT/HCPCS: 36415; 70450; 70553; 71045; 71100; 80048; 80053; 80061; 81001; 82550; 82553; 83036; 83735; 84443; 84484; 85025; 85610; 85730; 93005; 93306; 93880; 96374; 96375; G0378; J0696; J1170; J2405; J7030; J7040